=== PATIENT | male | born 1985 | race Caucasian/White ===

== ENCOUNTER 2025-04-10 17:38 | Emergency (ER) | payer OTHER, SELFPAY ==
[2025-04-10 17:45] VITALS: BP 130/82
[2025-04-10 19:42] VITALS: BMI 19.7
--- NOTE | 2025-04-10 23:22 | ED.SKININJ ---
HPI-Injury
<Pernell Mackey DO, Resident - Last Filed: 04/11/25 01:04>
General
Chief Complaint: Bite
Source: patient
Exam Limitations: none
Time Seen by Provider: 04/10/25 21:42
Nursing documentation reviewed up to this point in time: agreed with
History of Present Illness-Injury
Is this injury a work related problem?: No
Is pt an associate of [facility]/[place]?: No
Initial Injury comments:
Ze Villanueva is a 40M w/ no significant PMHx who is presenting after dog bite. Patient states that around 1600 today, he was walking around [place] when he bent down to pet a domesticated dog that was on a leash. The dog proceeded to bite him
on the face. Patient notes that he immediately began to bleed and rushed to the hospital without getting any information from the dog's tank calibrator. Notes that the areas around the bites are painful, but denies any numbness or tingling to the face or
lips. He otherwise denies any headaches, visual changes, chest pains, palpitations, shortness of breath, abdominal symptoms. Patient has a PCP out of town, but is unsure of when his last tetanus booster was.
Review of Systems
<Pernell Mackey DO, Resident - Last Filed: 04/11/25 01:04>
Review of Systems
Allergies reviewed?: Yes
All Other Systems: ROS reviewed and negative except as documented in HPI and ROS
Phy Exam
<Pernell Mackey DO, Resident - Last Filed: 04/11/25 01:04>
Physical Exam
Physical Exam:
General: well developed, well-nourished male in no acute distress.
HEENT: normocephalic, EOMI. There is an abrasion to the bridge of the nose and the left nare with dried blood. There is a shallow laceration of the upper lip that extends down to the lower lip that is well approximated but seperatable.
Respiratory: no respiratory distress, normal work of breathing.
Neuro: alert, awake, moving all fours
Psych: calm, normal affect.
Scores
<Pernell Mackey DO, Resident - Last Filed: 04/11/25 01:04>
Heart Failure Risk
Heart Failure Risk Score: Not Applicable
Heart Score for Chest Pain Patients
STEMI patient?: Not applicable
Withdrawal Assessment of Alcohol
Withdrawal Assessment Completed?: Not applicable
Course
<Pernell Mackey DO, Resident - Last Filed: 04/11/25 01:04>
Orders/Labs/Results
Orders:
Orders
04/11/25 00:03
Tetanus/Diphth/Acelpertussis [Adacel] 0.5 ml IM .ONCE ONE
04/11/25 00:04
Amoxicillin 875 mg/Clav 125 mg [Augmentin 875 mg/125 mg] 1 tablet PO NOW STA
Vital Signs
Initial and Last Documented VS:
Initial Vital Signs
Temp Pulse Resp BP Pulse Ox
98.0 F 76 18 130/82 99
04/10/25 17:45 04/10/25 17:45 04/10/25 17:45 04/10/25 17:45 04/10/25 17:45
Last Documented Vital Signs
Temp Pulse Resp BP Pulse Ox
98.0 F 76 18 130/82 99
04/10/25 17:45 04/10/25 17:45 04/10/25 17:45 04/10/25 17:45 04/10/25 23:23
<Reina Mcintyre DO - Last Filed: 04/11/25 01:20>
Orders/Labs/Results
Orders:
Orders
04/11/25 00:03
Tetanus/Diphth/Acelpertussis [Adacel] 0.5 ml IM .ONCE ONE
04/11/25 00:04
Amoxicillin 875 mg/Clav 125 mg [Augmentin 875 mg/125 mg] 1 tablet PO NOW STA
Vital Signs
Initial and Last Documented VS:
Initial Vital Signs
Temp Pulse Resp BP Pulse Ox
98.0 F 76 18 130/82 99
04/10/25 17:45 04/10/25 17:45 04/10/25 17:45 04/10/25 17:45 04/10/25 17:45
Last Documented Vital Signs
Temp Pulse Resp BP Pulse Ox
98.0 F 76 18 130/82 99
04/10/25 17:45 04/10/25 17:45 04/10/25 17:45 04/10/25 17:45 04/10/25 23:23
Procedures
<Reina Mcintyre DO - Last Filed: 04/11/25 01:20>
Laceration Closure
Left Upper Lip:
Status of Wound: clean and bite
Size of Wound in cm: 0.5
Description of Wound Edges: surrounded by abrasion
Preparation: cleaned with saline
Anesthesia: 1% Lidocaine with epi and added Na Bicarb to local
Revision/Debridement: routine- no revision and irrigate-direct pressure
Wound exploration: explored to base- no FB
Type of Closure: single layer closure
Skin Closure Material: 6-0 nylon
Number of sutures: 2
Left Lower Lip:
Status of Wound: clean and bite
Size of Wound in cm: 1
Description of Wound Edges: ragged and surrounded by abrasion
Preparation: cleaned with saline
Anesthesia: 1% Lidocaine with epi and added Na Bicarb to local
Revision/Debridement: routine- no revision and irrigate-direct pressure
Wound exploration: explored to base- no FB
Type of Closure: single layer closure
Skin Closure Material: 6-0 nylon (#3) and 5-0 chromic gut (#2)
Number of sutures: 5
<Pernell Mackey DO, Resident - Last Filed: 04/11/25 01:04>
MDM/Problems Addressed
Differential Diagnosis Includes:
Laceration, Abrasion, Dog Bite
MDM/Problems Addressed:
40M with no significant past medical history who presents after sustaining a dog bite. He sustained an abrasion to the bridge of the nose and left nare. He sustained a superficial but separable laceration of the upper lip that very slightly crosses
the anthony border and superficial but seperable laceration of the lower lip that does not cross the anthony border. Patient unsure of tetanus vaccination status, but believes it has been greater than 5 years. Tetanus updated. Dog was leashed
and was walking with tank calibrator, though information was not exchanged, there is low suspicion for rabies transmission. Laceration of the upper lip was repaired using 2 6-0 ethilon sutures with a simple interrupted technique. Laceration of the lower lip
was repaired using 3 6-0 ethilon sutures and 2 6-0 chromic gut sutures on the mucosal surface of the lower lip. Procedure performed after anaesthesia using Lido w/ Epi.
Patient tolerated procedure well. Patient discharged home on 7 day course of Augmentin with follow up instructions for suture removal.
<Pernell Mackey DO, Resident - Last Filed: 04/11/25 01:04>
*Pulse Oximetry
SaO2: 99
Oxygen Mode of Delivery: Room air
Patient hypoxic: no
*Critical Care Note
Total Time (30-74mins, 75-104mins- exclusive of procedures): Not Applicable
ED Attending Note
<Pernell Mackey DO, Resident - Last Filed: 04/11/25 01:04>
-
Portions of this chart may have been created with voice recognition software.� Occasional wrong word or��sound alike� substitutions may have occurred due to the inherent limitations of voice recognition software.
<Reina Mcintyre DO - Last Filed: 04/11/25 01:20>
ED Attending Note
Patient seen and examined by attending physician: Yes
I performed the substantive portion of visit, reviewed & personally made and approve the management plan that is documented in note by myself or PAVITHRA.: Yes
ED Attending Note:
40-year-old gentleman with no significant past medical history states he was bending down to pet a dog on a leash when the dog jumped up and bit his lip and nose. Injury occurred just prior to arrival.
Patient has sustained very superficial lacerations/scrapes to his nose. 2 tiny puncture wounds to mid nose.
There is a 0.5 cm laceration left upper lip, 2 to 3 mm in depth, minimally crosses the vermilion border. Minimal surrounding abrasion noted. No active bleeding.
There is a 1 cm mildly jagged, curved laceration to the left lower lip that abuts but does not cross the vermilion border. 2 to 3 mm in depth. Mild surrounding abrasion noted. Minimal intermittent bleeding promptly resolves with brief local
pressure. Teeth and gingiva are intact.
Nares are patent. No epistaxis.
Will plan for suture repair of upper and lower lip lacerations after copious normal saline solution irrigation.
Nasal lacerations are very superficial abrasion like and will be repaired with Steri-Strip.
Patient will be placed on a 1 week course of Augmentin and will update Tdap.
Recommend Tylenol versus ibuprofen as needed for pain.
Routine wound care discussed as well as soft diet.
Follow-up with PCP in 5 to 7 days for suture removal.
Return precautions discussed.
Discharge Plan
Departure
Patient Disposition: Home (Routine Discharge)
Date of Disposition: 04/11/25
Time of Disposition: 00:49
Patient with high blood pressure during this ER visit?: No
Condition: Good
Discharge Problem:
Dog bite, Laceration, Abrasion
Instructions: Animal Bites (DC), Laceration Repair With Stitches (DC)
Prescriptions:
New
amoxicillin-pot clavulanate 875-125 mg tablet
1 tab PO BID 7 Days Qty: 14 0RF
Referrals:
JUANITO SANTIAGO [Other]
Activity Restrictions/Additional Instructions:
Follow a soft diet for the first few days. Applying ice to abrasion/cut may help. Use over the counter pain medications as directed for as needed relief.
Follow up with you primary care provider in 5-7 days for removal of your stitches.
You were given a tetanus booster. This may cause soreness in your arm for 1-2 days.
The antibiotic prescribed may cause loose stools/diarrhea and is a common side effect of the medication.
Interventions
Interventions:
*General Assessment Last Done: 04/10/25 17:44
*Neglect/Abuse Screening Last Done: 04/10/25 17:44
*ED COVID-19 Vaccine History Last Done: 04/10/25 17:44
*ED Influenza Vaccine History Last Done: 04/10/25 17:44
[facility] Fall Risk Assessment Tool Last Done: 04/10/25 19:41
*Risk Screen - Suicide (C-SSRS) Last Done: 04/10/25 17:44
*Nursing Disposition Last Done: 04/11/25 01:01
ED-Skin Assessment Last Done: 04/10/25 19:41
Discharge Date and Time
Discharge Date/Time: 04/11/25 01:03
Print Language: TELUGU
[2025-04-11] MEDS: AUGMENTIN 875 MG/125 MG 1 TABLET PO (00:21)
[2025-04-11] MEDS: ADACEL 0.5 ML IM (00:21)
== END 2025-04-11 01:03 | disposition home or self-care (01) ==
LOC: EMR 17:38
PROVIDERS: EMERGENCY PHYSICIAN Emergency Medicine
DX: S01.511A Laceration without foreign body of lip, initial encounter (principal); S00.31XA Abrasion of nose, initial encounter; W54.0XXA Bitten by dog, initial encounter; Z23 Encounter for immunization
CPT/HCPCS: 90471; 12011; 99282; 90715